=== PATIENT | male | born 1955 | race Caucasian/White ===

== ENCOUNTER 2016-04-03 04:58 | Day surgery (SDC) | payer BC, OTHER ==
[2016-04-01 15:39] VITALS: BMI 23.5
--- NOTE | 2016-04-03 11:05 | HP ---
Satellite [facility] - Chief Complaint Chief Complaint: right ring finger pain - Past Medical History Allergies/Adverse Reactions: Allergies Allergy/AdvReac Type Severity Reaction Status Date / Time No Known Allergies Allergy Verified 04/01/16 15:29 - Current Medications Current Medications: Medication Instructions Recorded Folic Acid - 1 mg PO DAILY 10/07/12 Mercaptopurine [Purinethol] 100 mg PO DAILY 10/07/12 Fluticasone Prop 0.05% Nasal 2 spray NS BID 07/04/14 [Flonase -] Famotidine [Pepcid -] 40 mg PO DAILY 07/27/14 Mesalamine [Lialda] 1.2 gm PO DAILY 04/01/16 Tiotropium Ladora [Spiriva] 18 mcg IH DAILY 04/01/16 Hydrocodone/Acetaminophen [Vicodin 1 - 2 tab PO TID PRN #40 tablet 04/03/16 5-300 mg Tablet] MDD 6 Satellite Physical Exam - Physical Examination Vital Signs: Vital Signs Period Temp Pulse Resp BP Sys/Garay Pulse Ox Last 24 Hr 97.8 F 72 20 117/68 97 General Appearance: Well Nourished, Well Developed, Alert & Oriented x3 ENT: Clear Lung: Normal air movement Heart: Regular rate & rhythm Extremities: Other (right ring finger- + ttp a1 sherri, + locking, nvi) Neurological: Intact, Alert, Oriented Satellite Impression/Plan - Impression/Plan Impression: right ring trigger finger Operative Procedure: right ring trigger finger release Date to be Performed: 04/03/16
[2016-04-03] MEDS ORDERED: LIDOCAINE HCL 1%, 10 MG/ML (20ML VIAL) ONE (11:08)
[2016-04-03] MEDS ORDERED: BUPIVACAINE HCL/PF 0.5% (5MG/ML) 10 ML VIAL ONE (11:08)
[2016-04-03] MEDS ORDERED: ceFAZolin SODIUM 1 GM VIAL ONE (11:11)
[2016-04-03] MEDS ORDERED: DEXAMETHASONE SOD PHOSPHATE 4 MG/1 ML VIAL ONE (11:11)
[2016-04-03] MEDS ORDERED: PROPOFOL 20 ML ONE ×2 (11:11)
[2016-04-03] MEDS ORDERED: SODIUM CHLORIDE 0.9% P/F 10 ML VIAL IJ ONE (11:11)
[2016-04-03] MEDS ORDERED: KETOROLAC TROMETHAMINE 30 MG/1 ML VIAL ONE (11:11)
[2016-04-03] MEDS ORDERED: MIDAZOLAM HCL 2 MG/2 ML SINGLE DOSE VIAL ONE (11:12)
[2016-04-03] MEDS ORDERED: ceFAZolin SODIUM 1 GM VIAL IVPB ONE (11:42)
[2016-04-03] MEDS ORDERED: LIDOCAINE HCL 1%, 10 MG/ML (20ML VIAL) IJ ONE (11:56)
[2016-04-03] MEDS ORDERED: BUPIVACAINE HCL/PF 0.5% (5MG/ML) 10 ML VIAL IJ ONE (11:56)
--- NOTE | 2016-04-03 12:16 | OP ---
Operative Note - Note: Operative Date: 04/03/16 Pre-Operative Diagnosis: right ring finger trigger finger Operation: right ring finger trigger finger release, tendon sheath excision Post-Operative Diagnosis: Same as Pre-op Surgeon: Sotero Aparicio Anesthesiologist/[employer]ER: Ken Dow Jr. Anesthesia: General, Local Specimens Removed: tendon sheath Estimated Blood Loss (mls): 0 Blood Volume Replaced (mls): 0 Fluid Volume Replaced (mls): 500 Operative Report Dictated: Yes
[2016-04-03] MEDS ORDERED: ONDANSETRON 4 MG/2 ML VIAL IVPUSH PRN (12:25)
[2016-04-03] MEDS ORDERED: oxyCODONE HCL 5 MG TABLET PO PRN (12:25)
[2016-04-03] MEDS ORDERED: LACTATED RINGERS SOLUTION 1,000 ML IV SCH (12:30)
[2016-04-03 12:42] VITALS: TEMP 97.5
[2016-04-03 14:50] VITALS: BP 129/82; PULSE 88
--- NOTE | 2016-04-04 11:00 | SPEC ---
DATE OF OPERATION: 04/03/2016 PROCEDURE: Right ring finger trigger finger release and tendon sheath excision. PREOPERATIVE DIAGNOSIS: Right ring finger trigger finger. POST DIAGNOSIS: Right ring finger trigger finger. SURGEON: Sotero Aparicio MD [employer]ADE CLOTH FINISHER: Ken Dow CRNA ANESTHESIA: MAC anesthesia, local injection of 12 mL 0.5% Marcaine and 1% lidocaine mix. DRAINS: None. COMPLICATIONS: None. SPECIMEN: Tendon sheath right ring finger. BLOOD LOSS: None. BLOOD GIVEN: None. FLUID REPLACEMENT: 500 mL Plasmalyte. PROCEDURE: The patient is a 61-year-old male with preoperative diagnosis of recurrent right ring finger trigger finger. After understanding the potential risks, complications, alternatives, benefits to surgery versus nonsurgical treatment, the patient elected to undergo the procedure. The patient was brought to the operating room, peripheral IV place, anesthesia given. 1g of IV Ancef was given. MAC anesthesia was induced. Right upper extremity was prepped and draped in sterile fashion. A longitudinal excision was marked out over the A1 sherri sheath of the right ring finger. 10 mL of 0.5% Marcaine with lidocaine mix was injected in line of the surgical incision. The entire case was done under 3.8 loupe magnification. A marking pen was utilized to kurt out a longitudinal incision in an already existing skin crease at the base of the right ring finger. Then 10 mL of 0.5% Marcaine mixed with 1% Lidocaine was injected in and around the incision. The right upper extremity was elevated, exsanguinated with an Esmarch bandage and the tourniquet inflated to 250 mmHg. A No. 15 scalpel blade was utilized to cut down through the skin. Subcutaneous hemostasis was achieved with the bipolar cautery. Additional dissection was done with Littler scissors until I was able to directly visualize the A1 sherri sheath in its entirety. Self-retaining retractors were placed into the wound. A free air elevator was used to free up the tissue on the radial side, the ulnar side distally and proximally under better visualization of A1 sherri sheath. Next, using a fresh No. 15 scalpel blade, I excised the central 2 mm of the A1 sherri sheath and passed it off the field as specimen, tendon sheath, right ring finger. I then completed the release, both distally and proximally, and brought the FDS and FDP tendons out through the wound with a Ragnell retractor. There were no abnormal points of compression. I was able to move the right ring finger without the tendons bunching up at all. The area was then copiously irrigated and washed out. I then checked one more time to make sure there were no abnormal points of compression. None were seen and therefore closure was begun. One stitch using 4-0 Vicryl was used in the deep dermal layer. Skin was reapproximated with 4-0 Nylon sutures in a horizontal mattress fashion. The area was then washed and dried, covered with Xeroform gauze, sterile 4x4s, fluffs between the fingers, Webril and Coban. The tourniquet was taken down after a total tourniquet time of 15 minutes. There were no complications during the case. The patient tolerated the procedure quite well and was brought to the Ambulatory recovery Room in stable condition. Cheryle [id number]
--- NOTE | 2016-04-04 12:18 | PATH ---
Surgical Pathology Report Patient Name: MICHELL MATHEWS [facility]. Rec. #: [id number] /Age/Gender: 1955 (Age: 61) / M Account: [id number] Location: [facility] SUR[facility] Taken: 04/03/2016 Received: 04/03/2016 Reported: 04/04/2016 Physicians: Sotero Aparicio M.D. Specimen(s) Received TENDON SHEATH RIGHT RING FINGER Clinical History Trigger finger right ring finger Final Diagnosis SOFT TISSUE, RIGHT RING FINGER, TRIGGER FINGER RELEASE: TENOSYNOVIUM WITH AREAS OF FIBROSIS AND FOCAL MYXOID DEGENERATIVE CHANGES. Comment: Also see prior specimen [id number]. Electronically Signed Sohail Marc M.D. Gross Description Received in formalin, labeled "tendon sheath right ring finger," are 2 kat fragments of fibrous tissue measuring 0.4 and 0.7 cm in greatest dimension. The specimens are submitted in toto in one cassette. /04/03/201604/03/2016
== END 2016-04-03 14:00 | disposition home or self-care (01) ==
LOC: JASU-SURG 04:58
PROVIDERS: ATTEND Orthopaedic Surgery
PROC: 0LB70ZZ Excision of Right Hand Tendon, Open Approach (ICD-10-PCS; 2016-04-03)
PROC: 0LN70ZZ Release Right Hand Tendon, Open Approach (ICD-10-PCS; principal; 2016-04-03 10:30)
DX: M65.341 Trigger finger, right ring finger (principal)
CPT/HCPCS: 88304-TC; 94760

== ENCOUNTER 2016-08-15 07:57 | Day surgery (SDC) | payer OTHER ==
[2016-08-07 13:51] VITALS: BMI 24.2
[2016-08-15] MEDS ORDERED: LIDOCAINE HCL/PF 2% SDV 5ML VIAL ONE (08:05)
[2016-08-15] MEDS ORDERED: PROPOFOL 20 ML ONE ×2 (08:05)
[2016-08-15 10:31] VITALS: TEMP 97.9
[2016-08-15 10:36] VITALS: BP 132/73; PULSE 66
--- NOTE | 2016-08-16 12:09 | PATH ---
Surgical Pathology Report Patient Name: MICHELL MATHEWS [facility]. Rec. #: [id number] /Age/Gender: 1955 (Age: 61) / M Account: [id number] Location: [facility]-ENDOSCOPY Taken: 08/15/2016 Received: 08/15/2016 Reported: 08/16/2016 Physicians: Karel Stallings M.D. Specimen(s) Received A: TERMINAL ILEUM B: CECUM C: RIGHT COLON D: DOWN LEFT COLON E: SIGMOID F: RECTUM Clinical History Crohn's colitis Rule out dysplasia Final Diagnosis A. TERMINAL ILEUM, BIOPSY: SMALL BOWEL MUCOSA WITH MILD ARCHITECTURAL DISTORTION. NO EVIDENCE OF ACTIVE INFLAMMATION, GRANULOMATA OR DYSPLASIA. B. COLON, CECUM, BIOPSY: COLONIC MUCOSA WITH MILD FOCAL CRYPTS ALTERATION AND REACTIVE LYMPHOID AGGREGATES. NO EVIDENCE OF ACTIVE INFLAMMATION, GRANULOMATA OR DYSPLASIA. C. COLON, RIGHT, BIOPSY: COLONIC MUCOSA WITH MILD FOCAL CRYPTS ALTERATION AND REACTIVE LYMPHOID AGGREGATES. NO EVIDENCE OF ACTIVE INFLAMMATION, GRANULOMATA OR DYSPLASIA. D. COLON, DOWN LEFT, BIOPSY: COLONIC MUCOSA WITH FOCAL MILD CRYPTS ALTERATION. NO EVIDENCE OF ACTIVE INFLAMMATION, GRANULOMATA OR DYSPLASIA. E. COLON, SIGMOID, BIOPSY: COLONIC MUCOSA WITH FOCAL MINIMAL CRYPT ALTERATION. NO EVIDENCE OF ACTIVE INFLAMMATION, GRANULOMATA OR DYSPLASIA. F. RECTUM, BIOPSY: RECTAL MUCOSA WITHOUT SIGNIFICANT PATHOLOGIC CHANGES. NO EVIDENCE OF ACTIVE INFLAMMATION, SIGNIFICANT ARCHITECTURAL DISTORTION, GRANULOMATA OR DYSPLASIA. Comment: History of Crohn's disease is noted. The findings are compatible with quiescent colitis. Electronically Signed Michael Moura M.D. Gross Description A. Received in formalin, labeled "terminal ileum" are 2 kat, irregular portions of soft tissue measuring 0.2 and 0.3 cm in greatest dimension. The specimens are submitted in toto in one cassette. B. Received in formalin, labeled "cecum" is a kat, irregular portion of soft tissue measuring 0.2 cm in greatest dimension. The specimen is submitted in toto in one cassette. C. Received in formalin, labeled "right colon" are 6 kat, irregular portions of soft tissue ranging from 0.1-0.3 cm in greatest dimension. The specimens are submitted in toto in one cassette. D. Received in formalin, labeled "down left colon" are 3 kat, irregular portions of soft tissue averaging 0.2 cm in greatest dimension. The specimens are submitted in toto in one cassette. E. Received in formalin, labeled "sigmoid" are 2 kat, irregular portions of soft tissue measuring 0.2 and 0.4 cm in greatest dimension. The specimens are submitted in toto in one cassette. F. Received in formalin, labeled "rectum" are 2 kat, irregular portions of soft tissue measuring 0.1 and 0.4 cm in greatest dimension. The specimens are submitted in toto in one cassette. 08/15/2016 [facility]08/15/2016
== END 2016-08-15 10:00 | disposition home or self-care (01) ==
LOC: FASU-ENDO 07:57
PROVIDERS: ATTEND Internal Medicine Gastroenterology
PROC: 0DBM8ZX Excision of Descending Colon, Via Natural or Artificial Opening Endoscopic, Diagnostic (ICD-10-PCS; 2016-08-15)
PROC: 0DBL8ZX Excision of Transverse Colon, Via Natural or Artificial Opening Endoscopic, Diagnostic (ICD-10-PCS; 2016-08-15)
PROC: 0DBK8ZX Excision of Ascending Colon, Via Natural or Artificial Opening Endoscopic, Diagnostic (ICD-10-PCS; 2016-08-15)
PROC: 0DBH8ZX Excision of Cecum, Via Natural or Artificial Opening Endoscopic, Diagnostic (ICD-10-PCS; principal; 2016-08-15 08:52)
PROC: 0DBN8ZX Excision of Sigmoid Colon, Via Natural or Artificial Opening Endoscopic, Diagnostic (ICD-10-PCS; 2016-08-15 08:52)
DX: K63.89 Other specified diseases of intestine (principal); Z87.19 Personal history of other diseases of the digestive system
CPT/HCPCS: 88305-TC